=== PATIENT | male | born 1955 | race Caucasian/White ===

== ENCOUNTER 2023-08-18 06:29 | Outpatient (RCR) | payer BC, SELFPAY | END 2023-08-18 23:59 | disposition home or self-care (01) | LOC: RPT 06:29 | PROVIDERS: ATTENDING PHYSICIAN Urology; PRIMARYCARE PHYSICIAN Internal Medicine | DX: C61 Malignant neoplasm of prostate (principal); M62.81 Muscle weakness (generalized); R27.8 Other lack of coordination; Z73.6 Limitation of activities due to disability | CPT/HCPCS: 97110; 97140; 97530 ==

== ENCOUNTER 2023-09-16 07:57 | Outpatient (RCR) | payer BC, SELFPAY | END 2023-09-16 09:25 | disposition home or self-care (01) | LOC: RPT 07:57 | PROVIDERS: ATTENDING PHYSICIAN Urology; PRIMARYCARE PHYSICIAN Internal Medicine | DX: C61 Malignant neoplasm of prostate (principal); M62.81 Muscle weakness (generalized); R27.8 Other lack of coordination; Z73.6 Limitation of activities due to disability | CPT/HCPCS: 97140; 97530 ==